=== PATIENT | male | born 1990 | race African-American/Black ===

== ENCOUNTER → 2021-11-28 | Outpatient (CLI) | payer OTHER ==
--- NOTE | 2021-11-28 13:54 | P.HPBAR ---
Bariatric H&P - History & Physicial H&P Date: 11/28/21 History & Physicial: Visit/CC: Patient initial contact: Initial weight: Initial weight in pounds: Height: 5 ft 5 in Initial BMI: Last weight: Current weight: 300.278 kg Current weight in pounds: Current BMI: Severy body weight (based on NIH guidelines): Excess body weight loss: The patient is a 31 year-old M who presents for Bariatric Assessment. Patient presents today for bariatric presurgical consultation. Patient is morbidly obese. His BMI is 110. He weighs 662 pounds. He is requesting information about sleeve gastrectomy. Past Medical History Past Medical History: Hypertension, Sleep Apnea/CPAP/BIPAP Additional Past Medical History / Comment(s): borderline diabetes. History of Any Multi-Drug Resistant Organisms: None Reported Past Surgical History: Adenoidectomy, Tonsillectomy Additional Past Surgical History / Comment(s): spinal tap - 2005. Past Anesthesia/Blood Transfusion Reactions: No Reported Reaction Past Psychological History: ADD/ADHD Smoking Status: Former smoker Past Alcohol Use History: None Reported Additional Past Alcohol Use History / Comment(s): pt quit 09/2021. Past Drug Use History: None Reported Surgical - Exam - General well developed, well nourished, no distress - Eyes PERRL - ENT normal pinna - Neck no masses - Respiratory normal expansion - Cardiovascular Rhythm: regular - Abdomen Abdomen: soft, non tender Bariatric Assessment & Plan Plan: Morbid obesity. Patient was scheduled for EGD. We went over the sleeve gastrectomy. He has an excellent understanding of procedure. Bariatric Checklist Checklist: Plan: Checklist: EGD: 1. Hiatal hernia: 2. H. Pylori: HgbA1c: Vitamin D: Smoking: Primary care physician referral: Psychiatry clearance: Cardiology clearance: Sleep study: Diet journal: VTE risk score: VTE risk level: Rehab needs at discharge:
[2021-11-28 14:09] VITALS: BMI 110.1
[2021-11-28 14:10] VITALS: BP 148/92; PULSE 128; RESP 18; TEMP 98.4
== END ==
LOC: BARWHC3 13:14
PROVIDERS: ATTEND Surgery
DX: E66.01 Morbid (severe) obesity due to excess calories (principal); I10 Essential (primary) hypertension; Z68.45 Body mass index [BMI] 70 or greater, adult; Z87.891 Personal history of nicotine dependence; Z79.899 Other long term (current) drug therapy; Z88.0 Allergy status to penicillin
CPT/HCPCS: 99203

== ENCOUNTER → 2022-04-17 | Outpatient (CLI) | payer OTHER ==
[2022-04-17 12:59] VITALS: BP 163/93; PULSE 118; RESP 12; TEMP 98.6; BMI 88.5
--- NOTE | 2022-04-17 15:03 | P.HPBAR ---
Bariatric H&P - History & Physicial H&P Date: 04/17/22 History & Physicial: Visit/CC: follopw up Patient initial contact: Initial weight: 300.278 kg Initial weight in pounds: 662.00 Height: 5 ft 5 in Initial BMI: 110.1 Last weight: Current weight: 314.34 kg Current weight in pounds: 532.00 Current BMI: 88.5 Shannon body weight (based on NIH guidelines): 61.689 kg Excess body weight loss: 24.7% The patient is a 31 year-old M who presents for Bariatric Assessment. Patient presents today for bariatric follow-up. He is morbidly obese. His current weight is 693 pounds. He presented with 662 pounds. Patient is enormous Past Medical History Past Medical History: Hypertension, Sleep Apnea/CPAP/BIPAP Additional Past Medical History / Comment(s): borderline diabetes. History of Any Multi-Drug Resistant Organisms: None Reported Past Surgical History: Adenoidectomy, Tonsillectomy Additional Past Surgical History / Comment(s): spinal tap - 2005. Past Anesthesia/Blood Transfusion Reactions: No Reported Reaction Past Psychological History: ADD/ADHD Smoking Status: Former smoker Past Alcohol Use History: None Reported Additional Past Alcohol Use History / Comment(s): pt quit 09/2021. Past Drug Use History: None Reported Surgical - Exam Vital Signs Temp Pulse Resp BP 98.6 F 118 H 12 163/93 04/17/22 12:56 04/17/22 12:56 04/17/22 12:56 04/17/22 12:56 - General well developed, well nourished, no distress - Eyes PERRL - Abdomen Abdomen: soft, non tender Bariatric Assessment & Plan Plan: Worsening morbid obesity. The patient that he will need to lose weight to do any surgery. I recommended f [facility] and tertiary care center. Patient will follow. 3 months. Bariatric Checklist Checklist: Plan: Checklist: EGD: 1. Hiatal hernia: 2. H. Pylori: HgbA1c: Vitamin D: Smoking: Primary care physician referral: Dr. Torres ([id number] [facility]) Psychiatry clearance: Cardiology clearance: Sleep study: Diet journal: VTE risk score: VTE risk level: Rehab needs at discharge:
== END ==
LOC: BARWHC3 12:35
PROVIDERS: ATTEND Surgery
DX: E66.01 Morbid (severe) obesity due to excess calories (principal); I10 Essential (primary) hypertension; Z68.45 Body mass index [BMI] 70 or greater, adult; Z87.891 Personal history of nicotine dependence
CPT/HCPCS: 99211

== ENCOUNTER → 2022-07-17 | Outpatient (CLI) | payer OTHER | LOC: BARWHC3 11:51 | PROVIDERS: ATTEND Surgery | DX: Z53.9 Procedure and treatment not carried out, unspecified reason (principal) ==